=== PATIENT | male | born 1990 | race Caucasian/White ===

== ENCOUNTER → 2021-02-03 10:18 | Outpatient (CLI) | payer OTHER, MEDICAID, SELFPAY ==
[2021-02-03 11:02] LABS: COVID19 -Nasal RAPID Negative (Negative)
--- NOTE | 2021-02-03 11:09 | DI.RAD.S_ITS ---
PROCEDURE: XR CHEST 2V INDICATIONS: Bilateral lower lateral rib pain TECHNIQUE: 2 views of the chest were acquired. COMPARISON: None. FINDINGS: Surgical changes and devices: None. Lungs and pleura: Lungs are clear. No pleural effusions or pneumothorax. Mediastinum: Mediastinal contours are normal. Heart size is normal. Bones and chest wall: No suspicious bony abnormalities. Soft tissues appear unremarkable. IMPRESSION: No acute cardiopulmonary process demonstrated radiographically. Dictated by: Toro Brambila M.D. on 02/03/2021 at 13:26 Approved by: Toro Brambila M.D. on 02/03/2021 at 13:30
== END ==
PROVIDERS: Referring Provider Physician Assistant; Visit Provider Physician Assistant
DX: Z20.822 Contact with and (suspected) exposure to COVID-19 (principal); R09.81 Nasal congestion; R09.89 Other specified symptoms and signs involving the circulatory and respiratory systems; R07.81 Pleurodynia
CPT/HCPCS: 71046; 87635

== ENCOUNTER → 2023-06-18 16:13 | Outpatient (CLI) | payer OTHER, MEDICAID, SELFPAY ==
[2023-06-18 17:51] LABS: COVID-19 CEPHEID 4-PLEX PCR Negative (Negative); Influenza A - CEPHEID Flu A NEGATIVE (NEGATIVE); Influenza B - CEPHEID Flu B POSITIVE (NEGATIVE); Respiratory Syncytial Virus Negative (Negative)
== END ==
PROVIDERS: Visit Provider Nurse Practitioner Family
DX: R05.1 Acute cough (principal); J02.9 Acute pharyngitis, unspecified
CPT/HCPCS: 0241U; 87070; 87880

== ENCOUNTER 2024-07-17 15:47 | Emergency (ER) | payer OTHER, SELFPAY ==
[2024-07-17] VITALS (11 sets, daily range): BP systolic 102–171; BP diastolic 50–100; PULSE 65–107; RESP 15–24; TEMP 36.9–37; O2SAT 96–98; BMI 31.5
--- NOTE | 2024-07-17 16:12 | DI.RAD.S_ITS ---
PROCEDURE: XR CHEST 1V INDICATIONS: chest pain TECHNIQUE: One view of the chest was acquired. COMPARISON: [facility], CR, XR CHEST 2V, 02/03/2021, 11:16. FINDINGS: Surgical changes and devices: None. Lungs and pleura: Lungs are clear. No pleural effusions or pneumothorax. Mediastinum: Mediastinal contours appear normal. Heart size is normal. Bones and chest wall: No suspicious bony lesions. Overlying soft tissues appear unremarkable. IMPRESSION: No acute pulmonary process. Dictated by: Bess Morton M.D. on 07/17/2024 at 16:56 Approved by: Bess Morton M.D. on 07/17/2024 at 16:56
--- NOTE | 2024-07-17 16:14 | PC.NURSE ---
pt has syncopal episode in triage. lasting about 10 seconds. pt AAOx3 after. HR immediately after 102/50 and HR 55. HR labile and going from 38-65. Running EKG performed. syncopized a second time lasting about 10 seconds. BP 65/42 sustained after 10 min with highest reading 76/systolic. was able with 3 RN assist get pt into WC in triage and into stretcher in 12. Report given to DEMETRIUS Saeed primary and propellant charge loader Kate made aware. Agustin added.
--- NOTE | 2024-07-17 16:17 | EKG_ITS ---
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
--- NOTE | 2024-07-17 16:18 | EKG_ITS ---
[facility] [address] [place] [address] Test Date: 2024-07-17 Pat Name: Roby Baig Department: [facility] Room: Gender: Male Application Tester: EUGENE : 1990 Requested By: Order Number: [id number] Reading MD: Michael Morales MD Measurements Intervals [place] Rate: 38 P: [place]: QRS: 25 QRSD: 96 T: 66 QT: 434 QTc: 345 Interpretive Statements Critical Test Result: Low HR Junctional bradycardia Nonspecific T wave abnormality NO SIGNIFICANT CHANGE FROM PRIOR TRACING Electronically Signed On 07-18-2024 8:01:03 PST by Michael Morales MD
--- NOTE | 2024-07-17 16:23 | EKG_ITS ---
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
[2024-07-17 16:25] LABS: Add Manual Diff / Slide Review NO; Basophils Absolute Auto 100 /uL (0-100); Basophils Percent Auto 1.2 % (0-2); Eosinophils Absolute Auto 200 /uL (0-450); Eosinophils Percent Auto 2.4 % (2-4); Hematocrit 43.4 % (41-53); Hemoglobin 14.8 g/dL (13.5-17.5); Lymphocytes Absolute Auto 2300 /uL (1100-4500); Lymphocytes Percent Auto 30.4 % (25-40); Mean Corpuscular HGB Conc 34.1 % (30-36); Mean Corpuscular Hemoglobin 29.5 PG (26-34); Mean Corpuscular Volume 86.6 fL (80-100); Monocytes Absolute Auto 600 /uL (0-900); Monocytes Percent Auto 7.4 % (3-14); Neutrophils Absolute Auto 4400 /uL (1500-7000); Neutrophils Percent Auto 58.6 % (50-75); Platelet Count 304 X10^3/uL (150-400); Red Blood Cell Count 5.01 X10^6/uL (4.5-5.9); Red Cell Distribution Width 13.6 % (11.6-14.8); White Blood Cell Count 7.4 X10^3/uL (4.5-11.0)
[2024-07-17 16:31] LABS: Prothrombin Time 11.3 SECONDS (9.4-12.5)
--- NOTE | 2024-07-17 16:32 | PC.NURSE ---
IV fluids infusing on pressure bag. pt attached to cardiac monitoring.
[2024-07-17 16:33] LABS: PTT Partial Thromboplastin Tim 32 SECONDS (25.1-36.5)
[2024-07-17 16:42] LABS: Alanine Aminotransferase 104 IU/L (<50); Albumin 4.6 g/dL (3.5-5.0); Albumin Globulin Ratio 1.7 (1.0-2.8); Alkaline Phosphatase 55 U/L (38-126); Aspartate Aminotransferase 54 IU/L (17-59); BUN Creatinine Ratio 10.7 (6-22); Bilirubin Total 0.3 mg/dL (0.2-1.3); Blood Urea Nitrogen 13 mg/dL (9-20); Calcium 8.8 mg/dL (8.4-10.2); Carbon Dioxide 24 mmol/L (22-32); Chloride 104 mmol/L (98-107); Creatine Kinase 82 U/L (55-170); Estimated Glomerular Filt Rate > 60 mL/min (>60); Globulin 2.7 g/dL (1.7-4.1); Glucose 132 mg/dL (70-100); HEMOLYSIS 18 (0-50); Lipase 108 U/L (23-300); Magnesium 1.7 mg/dL (1.6-2.3); Potassium 3.9 mmol/L (3.4-5.1); Sodium 136 mmol/L (137-145); Total Protein 7.3 g/dL (6.3-8.2)
[2024-07-17 16:53] LABS: NT-proBNP (BNP-Adult 18+) < 20 pg/mL (<125); Troponin I < 0.012 ng/mL (0.01-0.034)
--- NOTE | 2024-07-17 17:43 | PC.NURSE ---
Pt a&ox4. States that he feels much better. Denies cp, n/v, dizziness or lightheadedness. Skin pink, warm and dry. PERRL. VS WNL.
--- NOTE | 2024-07-17 19:21 | PC.NURSE ---
Pt ambulated to bathroom with stand by assist. Denies dizziness, lightheadness, cp, n/v. A&Ox4. Skin pink, warm, dry.
--- NOTE | 2024-07-17 19:48 | ED_ITS ---
HPI - Chest Pain General Chief Complaint: Chest Pain Stated Complaint: racing HR twinges in chest Time Seen by Provider: 07/17/24 19:48 History of Present Illness HPI narrative: Patient is a healthy 34-year-old male who presents to day with heart racing. He reports that he was sitting in his computer working when he felt his heart racing. He actually has a pulse oximeter from [employer] any put it on his finger and reports it is heart rate was in the 150s. It lasted for less than 10 minutes. He did not pass out no shortness of breath. He reports he has had a lot of stress in his life multiple family members from separate instances very closely together. He had 1 beer last night really does not drink alcohol at all he has 1 caffeinated drink every other day. He actually did have a vasovagal reaction with the IV was placed in his heart rate went down to the 30s. He otherwise is feeling well denies fever chills nausea vomiting and other symptoms Related Data Home Medications Medication Instructions Recorded Confirmed No Known Home Medications 06/18/23 06/18/23 Allergies Allergy/AdvReac Type Severity Reaction Status Date / Time bee venom protein (honey bee) AdvReac Severe Anaphylaxis Verified 06/18/23 16:01 Patient History Social History Smoking Status: Former smoker Smoking Status: Former smoker Exam Initial Vital Signs Initial Vital Signs: Vital Signs Temperature 98.4 F 07/17/24 16:08 Pulse Rate 107 H 07/17/24 16:08 Respiratory Rate 20 07/17/24 16:08 Blood Pressure 171/100 H 07/17/24 16:08 Pulse Oximetry 96 07/17/24 16:08 Oxygen Delivery Method Room Air 07/17/24 16:08 GENERAL: Alert well-appearing 34-year-old male and in no acute distress. HEENT: Head atraumatic,EOMI, pupils reactive, face symmetric, moist mucous membranes CARDIOVASCULAR: Regular rate and rhythm without murmurs, rubs or gallops. RESPIRATORY: Breath sounds equal bilaterally, no wheezes rales or rhonchi. ABDOMEN: Soft, nontender. Normoactive bowel sounds all 4 quadrants. No guarding or rebound. EXTREMITIES: Normal range of motion, no clubbing or edema. Neurovascularly intact NEUROLOGICAL: Alert and oriented x4.Normal gait and speech. Cranial nerves II through XII grossly intact. SKIN: Warm, dry, no laceration, no petechiae, no rashes or lesions. Course Orders Ordered: ED Orders 07/17/24 16:12 XR chest 1V Stat EKG-12 Lead Stat 07/17/24 16:14 Complete Blood Count AUTO DIFF Stat Comprehensive Metabolic Panel Stat Lipase Stat Magnesium Stat NT-proBNP (BNP-Adult 18+) Stat PTT Partial Thromboplastin Marco Stat Prothrombin Time INR Stat Troponin & CK Cardiac Panel Stat Vital Signs Vital signs: Vital Signs - 8 hr 07/17/24 20:00 07/17/24 20:00 Pulse Rate 91 H Respiratory Rate 22 Blood Pressure 137/97 H Pulse Oximetry 97 Oxygen Delivery Method Room Air MDM - Chest Pain Lab Data 07/17/24 16:14 07/17/24 16:14 Labs: Lab Results 07/17/24 Range/Units 16:14 WBC 7.4 (4.5-11.0) X10^3/uL RBC 5.01 (4.5-5.9) X10^6/uL Hgb 14.8 (13.5-17.5) g/dL Hct 43.4 (41-53) % MCV 86.6 (80-100) fL MCH 29.5 (26-34) PG MCHC 34.1 (30-36) % RDW 13.6 (11.6-14.8) % Plt Count 304 (150-400) X10^3/uL Neut % (Auto) 58.6 (50-75) % Lymph % (Auto) 30.4 (25-40) % [place] % (Auto) 7.4 (3-14) % Eos % (Auto) 2.4 (2-4) % Baso % (Auto) 1.2 (0-2) % Neut # (Auto) 4400 (6746-1040) /uL Lymph # (Auto) 2300 (0487-0082) /uL [place] # (Auto) 600 (0-900) /uL Eos # (Auto) 200 (0-450) /uL Baso # (Auto) 100 (0-100) /uL PT 11.3 (9.4-12.5) SECONDS INR 1.0 (0.9-1.3) APTT 32 (25.1-36.5) SECONDS Sodium 136 L (137-145) mmol/L Potassium 3.9 (3.4-5.1) mmol/L Chloride 104 (98-107) mmol/L Carbon Dioxide 24 (22-32) mmol/L BUN 13 (9-20) mg/dL Creatinine 1.21 (0.66-1.25) mg/dL Estimated GFR > 60 (>60) mL/min BUN/Creatinine Ratio 10.7 (6-22) Glucose 132 H (70-100) mg/dL Calcium 8.8 (8.4-10.2) mg/dL Magnesium 1.7 (1.6-2.3) mg/dL Total Bilirubin 0.3 (0.2-1.3) mg/dL AST 54 (17-59) IU/L ALT 104 H (<50) IU/L Alkaline Phosphatase 55 (38-126) U/L Total Creatine Kinase 82 (55-170) U/L Troponin I < 0.012 (0.01-0.034) ng/mL NT-Pro-B Natriuret Pep < 20 (<125) pg/mL Total Protein 7.3 (6.3-8.2) g/dL Albumin 4.6 (3.5-5.0) g/dL Globulin 2.7 (1.7-4.1) g/dL Albumin/Globulin Ratio 1.7 (1.0-2.8) Lipase 108 (23-300) U/L Imaging Data Chest x-ray: Radiologist's Impression: PROCEDURE: XR CHEST 1V INDICATIONS: chest pain TECHNIQUE: One view of the chest was acquired. COMPARISON: [facility], , XR CHEST 2V, 02/03/2021, 11:16. FINDINGS: Surgical changes and devices: None. Lungs and pleura: Lungs are clear. No pleural effusions or pneumothorax. Mediastinum: Mediastinal contours appear normal. Heart size is normal. Bones and chest wall: No suspicious bony lesions. Overlying soft tissues appear unremarkable. IMPRESSION: No acute pulmonary process. Dictated by: Bess Morton M.D. on 07/17/2024 at 16:56 Approved by: Bess Morton M.D. on 07/17/2024 at 16:56 ECG Data Attestation: I personally reviewed and interpreted this ECG as follows: Prior ECG tracings: not available for review Interpretation: Junctional rhythm rate 38 EKGs 1 minute later shows persistent bradycardia rate 38 no P waves identified no ischemic changes Of note the above EKGs were taken during the IV placement and vasovagal reaction EKGs 3. Normal sinus rhythm rate 67 [place] interval 148 QRS [address] changes MDM Narrative Medical decision making narrative: Patient healthy 34-year-old male presenting today with heart palpitations. He did heart rate of 150 captured by pulse oximeter lasting about 10 minutes or less. No syncopal episode. Blood work today is overall reassuring x-ray is negative. Monitor has been reviewed he said that alarms went off but I do not see any significant arrhythmias. He did get bradycardic and has a vasovagal reaction when IV was placed which is when the 1st 2 EKGs were taken. He has significant stress in his life it does not sound like he has a lot of caffeine or alcohol intake. At this time I recommended outpatient event monitor. He has a primary care provider whom he has not seen but will make contact Discharge Plan Departure Patient Disposition: Home Clinical Impression: Heart palpitations Instructions: DI for Palpitations Activity Restrictions/Additional Instructions: *You have been diagnosed with palpitations *What to do: At this time please talk to your primary care provider about getting a ZIO monitor. Please carry your pulse oximeter and monitor. I also recommend that if your heart rate is elevated please return to the ED so we can capture the rhythm. No significant or concerning abnormalities on your monitor *Continue to take medications as directed *Follow up with your primary care provider in 2-3 days or call [phone] *Return to ER if you should have elevated heart rate greater than 130 while at rest her longer than 20 minutes chest pain shortness of breath passing out [or] any new, worsening or concerning symptoms Prescriptions: No Action No Known Home Medications Referrals: Miscellaneous,Doctor, MD [Primary Care Provider] - Stand Alone Forms: Patient Portal/API/Survey
== END 2024-07-17 20:29 | disposition home or self-care (01) ==
PROVIDERS: Emergency Medicine; Emergency Provider Emergency Medicine
DX: R00.2 Palpitations (principal); R00.1 Bradycardia, unspecified; Z87.891 Personal history of nicotine dependence; Z63.4 Disappearance and death of family member
CPT/HCPCS: 36415; 71045; 80053; 82550; 83690; 83735; 83880; 84484; 85025; 85610; 85730; 93005; 93010; 99283; 99285

== ENCOUNTER 2025-01-06 10:57 | Emergency (ER) | payer OTHER, SELFPAY ==
[2025-01-06] VITALS (33 sets, daily range): BP systolic 77–144; BP diastolic 38–89; PULSE 49–84; RESP 10–26; O2SAT 94–98; BMI 31.1
--- NOTE | 2025-01-06 12:00 | DI.CT.S_ITS ---
PROCEDURE: CT FACIAL BONES WO CON INDICATIONS: dental swelling TECHNIQUE: Noncontrast 2.5 mm thick axial images acquired from the mandible through the frontal sinuses, with coronal and sagittal reformatting. For radiation dose reduction, the following was used: automated exposure control, adjustment of mA and/or kV according to patient size. COMPARISON: None. FINDINGS: Image quality: Excellent. Bones and teeth: Mild periapical lucency can be seen adjacent to the tooth root of the medial maxillary incisor, as on series 4, image 27 and on series 5, image 47. Orbital tony are intact. Sinus tony show no fracture or deformity. Nasal bones and septum are intact. Visualized portions of the mandible demonstrate no fractures or subluxation. Zygomatic arches are intact. Pterygoid plates are intact. Visualized portions of the skull base and auditory canals are intact. Sinuses: Paranasal sinuses are aerated, without fluid levels, mucosal thickening, or mucoceles. Mastoid air cells are aerated. Soft tissues: Generalized mild soft tissue swelling can be seen involving the anterior face. No soft tissue gas or fluid collections can be seen. Vascular: Visualized vascular structures appear normal in the absence of contrast. Bony vascular foramina and canals are intact. IMPRESSION: Likely left anterior maxillary periapical abscess. Please correlate with dental examination. Generalized soft tissue swelling can be seen along the anterior face. No soft tissue gas or soft tissue abscess is seen. Dictated by: Devante Herman M.D. on 01/06/2025 at 11:32 Approved by: Devante Herman M.D. on 01/06/2025 at 11:34
--- NOTE | 2025-01-06 15:36 | ED.DENTAL ---
HPI - Dental/Oral General Chief complaint: Dental/Oral Stated complaint: Swelling of face after dental work; getting worse Time Seen by Provider: 01/06/25 15:29 Source: patient Mode of arrival: Ambulatory History of Present Illness HPI Narrative: 34-year-old male who on January 03 started with some swelling in the periapical area on top of his upper gumline area and all the way into his maxillofacial area on the left side. Patient was started on some p.o. antibiotics by his dentist but the swelling did not improve. He was then switched antibiotics at the walk-in clinic by his condition still did not improve. Currently he still has some swelling in the area but denies any fever or chills or any other symptoms. He is protecting his airway. All other 14 point systems negative Related Data Home Medications ?Medication ?Instructions ?Recorded ?Confirmed amoxicillin 500 mg tablet 500 mg PO 3XD 01/05/25 01/05/25 epinephrine 0.3 mg/0.3 mL 0.3 ml IM PRN anaphylaxis 01/05/25 01/05/25 injection, auto-injector Previous Rx's ?Medication ?Instructions ?Recorded clindamycin HCl 300 mg capsule 300 mg PO Q6H 5 days #20 caps 01/05/25 prednisone 50 mg tablet 50 mg PO DAILY #5 tabs 01/06/25 Allergies Allergy/AdvReac Type Severity Reaction Status Date / Time bee venom protein (honey bee) AdvReac Severe Anaphylaxis Verified 01/05/25 16:08 Review of Systems Review of Systems ROS Unobtainable: All systems reviewed & are unremarkable except as noted in HPI and below Patient History Social History Smoking Status: Never smoker Smoking Status: Never smoker Exam Narrative Exam Narrative: General: Patient appears to be in no acute distress, acting appropriately Head: normocephalic, atraumatic, HEENT: Pupils equal round reactive, eyes tracking well, neck supple, no JVD upper lip and left maxillary area swollen, pain with palpation over gumline above upper apical area Heart: regular rate and rhythm, no murmurs, rubs, or gallops heard Lungs: clear to auscultation, no adventitious sounds Abdomen: soft , nontender, nondistended, positive bowel sounds Neurological: no focal neurological signs, moving all extremities well, alert and oriented x3, Psych: good judgment ,good insight, mood is normal. Initial Vital Signs Initial Vital Signs: Vital Signs Oxygen Delivery Method Room Air 01/06/25 11:53 Course Course Course Narrative: CT face showed Likely left anterior maxillary periapical abscess. We will start the patient on IV antibiotics due to failing p.o. antibiotics. Orders Ordered: ED Orders 01/06/25 12:00 CT facial bones wo con Stat 01/06/25 15:55 CBC Auto Diff [Complete Blood Count AUTO DIFF] Stat CMP [Comprehensive Metabolic Panel] Stat Procalcitonin Stat 01/06/25 16:27 EKG-12 Lead Stat Discontinued Medications Dexamethasone (Dexamethasone 10 Mg/Ml Vial) 6 mg IV NOW ONE Stop: 01/06/25 16:12 Last Admin: 01/06/25 16:49 Dose: 6 mg Documented By: RYAN Ceftriaxone Sodium 2,000 mg/ (Sodium Chloride) 100 mls @ 200 mls/hr IV NOW ONE Stop: 01/06/25 15:40 Last Infusion: 01/06/25 17:49 Dose: Infused Documented By: Admin: 01/06/25 16:54 Dose: 200 mls/hr Documented By: RYAN Sodium Chloride (Normal Saline 0.9%) 1,000 mls @ 1,000 mls/hr IV BOLUS ONE Stop: 01/06/25 17:04 Last Infusion: 01/06/25 17:16 Dose: Infused Documented By: Admin: 01/06/25 16:10 Dose: 1,000 mls/hr Documented By: ROLANDA Reevaluation(s) Reevaluation #1: Patient had an episode of bradycardia down into the 20-30s and hypotension with a systolic around the 70s for a a couple of minutes after trying to get an IV placed. Patient's heart rate and blood pressure normalized after a normal saline bolus. Reevaluation #2: Upon re-evaluation, patient is much improved. Patient is eager and ready to be discharged. Vital Signs Vital signs: Vital Signs - 8 hr 01/06/25 11:53 01/06/25 15:45 01/06/25 16:00 Pulse Rate 82 49 L Respiratory Rate 14 Blood Pressure Pulse Oximetry 97 98 Oxygen Delivery Method Room Air 01/06/25 16:01 01/06/25 16:01 01/06/25 16:05 Pulse Rate 49 L Respiratory Rate 14 Blood Pressure 77/38 L 80/41 L Pulse Oximetry 97 Oxygen Delivery Method 01/06/25 16:05 01/06/25 16:09 01/06/25 16:09 Pulse Rate 50 L 61 Respiratory Rate 18 15 Blood Pressure 113/69 Pulse Oximetry 97 97 Oxygen Delivery Method 01/06/25 16:10 01/06/25 16:10 01/06/25 16:15 Pulse Rate 60 52 L Respiratory Rate 16 11 L Blood Pressure 116/67 Pulse Oximetry 97 98 Oxygen Delivery Method 01/06/25 16:15 01/06/25 16:20 01/06/25 16:20 Pulse Rate 60 Respiratory Rate 10 L Blood Pressure 121/67 117/70 Pulse Oximetry 94 Oxygen Delivery Method 01/06/25 16:25 01/06/25 16:25 Pulse Rate 60 Respiratory Rate 12 Blood Pressure 119/71 Pulse Oximetry 96 Oxygen Delivery Method MDM - Dental/Oral Lab Data 01/06/25 15:55 01/06/25 15:55 Labs: Lab Results 01/06/25 Range/Units 15:55 WBC 11.5 H (4.5-11.0) X10^3/uL RBC 5.60 (4.5-5.9) X10^6/uL Hgb 16.1 (13.5-17.5) g/dL Hct 48.4 (41-53) % MCV 86.5 (80-100) fL MCH 28.8 (26-34) PG MCHC 33.3 (30-36) % RDW 13.4 (11.6-14.8) % Plt Count 268 (150-400) X10^3/uL Neut % (Auto) 73.8 (50-75) % Lymph % (Auto) 14.1 L (25-40) % Coffee % (Auto) 10.9 (3-14) % Eos % (Auto) 0.7 L (2-4) % Baso % (Auto) 0.5 (0-2) % Neut # (Auto) 8500 H (1229-8316) /uL Lymph # (Auto) 1600 (2132-6790) /uL [place] # (Auto) 1200 H (0-900) /uL Eos # (Auto) 100 (0-450) /uL Baso # (Auto) 100 (0-100) /uL Sodium 138 (137-145) mmol/L Potassium 4.1 (3.4-5.1) mmol/L Chloride 103 (98-107) mmol/L Carbon Dioxide 23 (22-32) mmol/L BUN 14 (9-20) mg/dL Creatinine 0.92 (0.66-1.25) mg/dL Estimated GFR > 60 (>60) mL/min BUN/Creatinine Ratio 15.2 (6-22) Glucose 126 H (70-99) mg/dL Calcium 9.4 (8.4-10.2) mg/dL Total Bilirubin 0.8 (0.2-1.3) mg/dL AST 32 (17-59) IU/L ALT 41 (<50) IU/L Alkaline Phosphatase 80 (38-126) U/L Total Protein 8.7 H (6.3-8.2) g/dL Albumin 5.0 (3.5-5.0) g/dL Globulin 3.7 (1.7-4.1) g/dL Albumin/Globulin Ratio 1.4 (1.0-2.8) Procalcitonin 0.171 (<0.5) ng/mL MDM Narrative Medical decision making narrative: After re-evaluation, patient's swelling has improved as well as his pain. Patient can be discharged on the original antibiotics that he is on Augmentin and will do a prednisone burst for him. Follow up with his dentist as planned already. Discharge Plan Departure Patient Disposition: Home Clinical Impression: Dental abscess Instructions: Tooth Abscess Activity Restrictions/Additional Instructions: Go back on Augmentin b.i.d.. Also prescribed prednisone for next 5 days. Follow up for any worsening pain. Follow up with your dentist as planned already. May need to follow up of oral surgeon as well. Prescriptions: New prednisone 50 mg tablet 50 mg PO DAILY Qty: 5 0RF No Action amoxicillin 500 mg tablet 500 mg PO 3XD epinephrine 0.3 mg/0.3 mL auto-injector 0.3 ml IM PRN (Reason: anaphylaxis) clindamycin HCl 300 mg capsule 300 mg PO Q6H 5 Days Qty: 20 0RF Referrals: Miscellaneous,Doctor, [Primary Care Provider, Medical] Stand Alone Forms: Patient Portal/API
--- NOTE | 2025-01-06 16:03 | EKG_ITS ---
[address] [address] Test Date: 2025-01-06 Pat Name: Roby Baig Department: Room: Gender: Male Oncology Rep: NATANAEL : 1990 Requested By: Order Number: [id number] Reading MD: Jason Carmona Measurements Intervals [place] Rate: 51 P: 26 [place]: 152 QRS: 28 QRSD: 90 T: 67 QT: 432 QTc: 398 Interpretive Statements Sinus bradycardia with sinus arrhythmia Electronically Signed On 01-12-2025 7:27:36 PDT by Jason Carmona
[2025-01-06] MEDS: SODIUM CHLORIDE 0.9% 1,000 ML 1000 ML IV (16:10)
--- NOTE | 2025-01-06 16:20 | PC.NURSE ---
This RN placed patient IV line in right AC. Patient was fine for about 5 minutes prior to his heart rate beginning to drop. Patient became unresponsive for 10-15 seconds prior to patient becoming alert again. This RN called for help., Patient has history of syncope post IV placement. Patient also has hx of seizure post IV placement. Respiratory therapist responded and brought seizure pads. No signs of seizure noted. Patient alert and verbal. Patient is bradycardic. EKG verbally ordered and completed. Patient is diaphoretic with sweat all over his body. Patient another two syncopal episodes lasting 5-15 seconds each time with Dr. Gilbert in the room. Defibrillation pads placed on patient chest and back. Patient became hypotensive. Verbal order for bolus of normal saline at 100ml/hr.
[2025-01-06 16:21] LABS: Add Manual Diff / Slide Review NO; Hematocrit 48.4 % (41-53); Hemoglobin 16.1 g/dL (13.5-17.5); Lymphocytes Absolute Auto 1600 /uL (1100-4500); Mean Corpuscular HGB Conc 33.3 % (30-36); Mean Corpuscular Hemoglobin 28.8 PG (26-34); Mean Corpuscular Volume 86.5 fL (80-100); Platelet Count 268 X10^3/uL (150-400)
[2025-01-06 16:35] LABS: Alanine Aminotransferase 41 IU/L (<50); Albumin 5.0 g/dL (3.5-5.0); Albumin Globulin Ratio 1.4 (1.0-2.8); Alkaline Phosphatase 80 U/L (38-126); Blood Urea Nitrogen 14 mg/dL (9-20); Calcium 9.4 mg/dL (8.4-10.2); Carbon Dioxide 23 mmol/L (22-32); Chloride 103 mmol/L (98-107); Estimated Glomerular Filt Rate > 60 mL/min (>60); Globulin 3.7 g/dL (1.7-4.1); Glucose 126 mg/dL (70-99); HEMOLYSIS < 15 (0-50); Potassium 4.1 mmol/L (3.4-5.1); Sodium 138 mmol/L (137-145); Total Protein 8.7 g/dL (6.3-8.2)
[2025-01-06] MEDS: DEXAMETHASONE 10 MG/ML VIAL 6 MG IV (16:49)
[2025-01-06 16:51] LABS: Procalcitonin 0.171 ng/mL (<0.5)
[2025-01-06] MEDS: cefTRIAXone 2,000 MG in SODIUM CHLORIDE 0.9% 100 ML 200 MG IV (16:54)
== END 2025-01-06 18:25 | disposition home or self-care (01) ==
PROVIDERS: Emergency Provider Family Medicine
DX: K04.7 Periapical abscess without sinus (principal)
CPT/HCPCS: 36415; 70486; 80053; 84145; 85025; 93005; 96365; 96375; 99284; J0696; J1100

== ENCOUNTER → 2025-03-12 12:44 | Outpatient (CLI) | payer OTHER, SELFPAY ==
--- NOTE | 2025-03-12 12:45 | DI.RAD.S_ITS ---
PROCEDURE: XR ANKLE LT MIN 3V INDICATIONS: Left ankle pain clinical suspicion of fracture TECHNIQUE: 3 views of the ankle were acquired. COMPARISON: None. FINDINGS: Moderate diffuse circumferential soft tissue swelling surrounding the left ankle predominantly laterally some of which may be related to ligamentous injury. Possible mild tibiotalar ankle joint effusion noted on the lateral image versus artifact related to soft tissue edema. No radiographic evidence of displaced fracture, dislocation or high attenuation soft tissue foreign body. IMPRESSION: Diffuse soft tissue swelling as discussed above. Possible tibiotalar effusion. No gross radiographic evidence of fracture. If symptoms persist or worsen, or there is high clinical suspicion of left ankle/foot abnormality, MRI could be performed. Dictated by: Tod Crow M.D. on 03/12/2025 at 13:32 Approved by: Tod Crow M.D. on 03/12/2025 at 13:35
== END ==
PROVIDERS: Referring Provider Chiropractor; Visit Provider Chiropractor
DX: S93.402A Sprain of unspecified ligament of left ankle, initial encounter (principal); M79.89 Other specified soft tissue disorders; X58.XXXA Exposure to other specified factors, initial encounter
CPT/HCPCS: 73610